=== PATIENT | male | born 1975 | race Two or more races ===

== ENCOUNTER 2024-04-08 13:26 | Emergency (ER) | payer OTHER, SELFPAY ==
--- NOTE | 2024-04-08 13:39 | XR_ITS ---
Examination: Ribs, right, with PA chest, 5 views Technique: Chest PA, RIBS AP, RPO, LPO, AP coned lower ribs 5 views Exam date and time: April 08, 2024 1344 hours INDICATIONS: Patient fell off a ladder 2 days ago with injury to the right chest, right chest pain Findings: Acute fractures right fifth, sixth, seventh ribs anteriorly without significant displacement No pneumothorax IMPRESSION: No pneumothorax pulmonary contusion or hemothorax Normal heart size Acute fractures right fifth, sixth, seventh ribs anteriorly
[2024-04-08 13:40] VITALS: BP 153/87; PULSE 70; RESP 18; TEMP 36.8; O2SAT 98; BMI 28.6
[2024-04-08] MEDS: IBUPROFEN TAB 400 MG TABLET 800 MG PO (13:50)
[2024-04-08] MEDS: HYDROcodone/APAP 5/325 TABLET 1 TAB PO (13:51)
--- NOTE | 2024-04-08 14:08 | EDNOTE_ITS ---
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) Time Seen by Provider: 04/08/24 13:33 Arrival date/time: 04/08/24 13:26 48-year-old male presents the emergency department complains of right-sided rib pain after falling off a ladder 3 days ago while at work patient reports no head or neck pain no abdominal pain Limitations: no limitations Related Data Previous Rx's ?Medication ?Instructions ?Recorded albuterol sulfate 90 mcg/actuation 1 inh inhalation QID PRN shortness 01/13/23 aerosol inhaler of breath or wheezing #8.5 grams acetaminophen 325 mg-DM 10 mg/10 20 ml PO BID #118 mL 08/01/23 mL oral liquid (Robitussin Cough-Sore Throat) budesonide-formoterol HFA 160 2 puff inhalation BID asthma #10.2 02/16/24 mcg-4.5 mcg/actuation aerosol grams inhaler (Symbicort) cyclobenzaprine 10 mg tablet 10 mg PO TID PRN muscle spasm 10 04/08/24 days #30 tab-caps hydrocodone 5 mg-acetaminophen 325 1 tab PO BID PRN pain #10 tabs 04/08/24 mg tablet ibuprofen 800 mg tablet 800 mg PO TID PRN pain #30 tabs 04/08/24 Allergies Allergy/AdvReac Type Severity Reaction Status Date / Time No Known Allergies Allergy Verified 04/08/24 13:30 Review of Systems Review of Systems Systems Reviewed: All systems reviewed, normal except as documented Constitutional Constitutional: Reports system reviewed and no additional complaints, except as documented, Denies fever(s) and Denies headache(s) Eyes Eyes: Reports system reviewed and no additional complaints, except as documented and Denies blurry vision ENT Ears, Nose, Mouth, and Throat: Reports system reviewed and no additional complaints, except as documented, Denies headache(s), Denies nasal congestion and Denies nasal discharge Cardiovascular Cardiovascular: Reports system reviewed and no additional complaints, except as documented, Denies chest pain and Denies dyspnea Respiratory Respiratory: Reports system reviewed and no additional complaints, except as documented, Denies chest congestion, Denies cough and Denies dyspnea Gastrointestinal Gastrointestinal: Reports system reviewed and no additional complaints, except as documented and Denies abdominal pain Musculoskeletal Musculoskeletal: Reports system reviewed and no additional complaints, except as documented and Reports other (Rib pain) Integumentary/Breasts Skin/Breast: Reports system reviewed and no additional complaints, except as documented and Denies rash Neurologic Neurologic: Reports system reviewed and no additional complaints, except as documented, Reports as per HPI and Denies headache(s) Past Medical History Past Medical History NEUROLOGIC: Negative Neurological Disorders, Cerebrovascular Accident, Transient Ischemic Attacks (TIA), Dementia, Alzheimer's Disease, Parkinson's Disease, Brain Tumor, Meningitis, Seizures, Epilepsy, Multiple Sclerosis, Cerebral Palsy, Amyotrophic Lateral Sclerosis (ALS/Jossie Gehrig's), Guillain-[place] Syndrome, Spina Bifida, Paralysis, Peripheral Neuropathy, Thao's Palsy, Subdural Hematoma, Migraine, Head Trauma, Spinal Cord Injury or Traumatic Brain Injury CARDIAC: Negative Cardiac Disorders, Myocardial Infarction, Cardiac Arrhythmia, Atrial Fibrillation, Angina, Heart Murmur, Coronary Artery Disease, Atherosclerotic Heart Disease, Peripheral Vascular Disease, Hypercholesterolemia, Aneurysm, Congestive Heart Failure, Congenital Heart Disease, Valvular Heart Disease, Rheumatic Fever, Cardiomyopathy, Edema, Pericarditis, Cellulitis, Deep Vein Thrombosis, Hypertension, Hypotension or Varicose Veins RESPIRATORY: Negative Chronic Obstructive Pulmonary Disease (COPD) or Bronchitis GASTROINTESTINAL: Negative Gastrointestinal Disorders, Hepatitis, Cirrhosis, Pancreatitis, Celiac Disease, Gall Bladder Disease, Gastrointestinal Bleed, Esophageal Varices, Ambriz's Esophagus, Colitis, Ulcerative Colitis, Diverticulitis, Diverticulosis, Ulcer, Irritable Bowel, Crohn's Disease, Obstructive Bowel, Hiatal Hernia, Hemorrhoids, Gastroesophageal Reflux Disease or Obesity GENITOURINARY: Negative Genitourinary Disorders, Renal Disease, Kidney Stones, Polycystic Kidney Disease, Neurogenic Bladder, Inguinal Hernia, Dialysis or Benign Prostatic Hyperplasia REPRODUCTIVE: Negative Genital Herpes, Gonorrhea, Syphilis or Testicular Cancer MUSCULOSKELETAL: Negative Musculoskeletal Disorders, Muscular Dystrophy, Myasthenia Gravis, Marfan's Syndrome, Arthritis, Rheumatoid Arthritis, Osteoporosis, Degenerative Disk Disease, Gout, Scoliosis, Fibromyalgia, Fractures, Degenerative Joint Disease, Osteomyelitis or Poliovirus ENT: Negative Cataracts, Glaucoma, Blind, Retinal Detachment, Macular Degeneration, Ear Infection, Deafness, Head Trauma or Eye Prosthesis ENDOCRINE: Negative Endocrine Disorders, Diabetes Mellitus Type 1, Diabetes Mellitus Type 2, Hypoglycemia, Pam's Syndrome, Morse's Disease, Hyperthyroidism, Hypothyroidism, Parathyroid Disease, Pituitary Disease, Systemic Lupus Erythematosus, Syndrome of Inappropriate Antidiuretic Hormone (SIADH), Adrenal Disease or Graves' Disease HEMATOLOGIC: Negative Blood Disorders, Anemia, Leukemia, Hemophilia, Thalassemia, Sickle Cell Disease or Clotting Problems PSYCHO/SOCIAL: Negative Psychiatric Problems, Schizophrenia, Recreational Drug Use, Bipolar Disorder, Depression, Anxiety, Behavior Problems, Self-Mutilation, Attention Deficit Disorder, Attention Deficit Hyperactivity Disorder, Depression, Post Traumatic Stress Disorder or Eating Disorder OTHER HISTORY: Positive Chicken Pox; Negative Hospitalization, Autoimmune Disease, Down Syndrome, Autism, Developmental Delay, Shingles, Falls, Blood Transfusions, Blood Transfusion Reaction, Anesthesia Reactions, Organ Transplant, Chemotherapy, Radiation Therapy, Hyperbaric Therapy, MRSA, VRSA, Vancomycin-Resistant Enterococci, Human Immunodeficiency Virus (HIV), Measles, Mumps, Rubella ([place] Measles), Pertussis, Clostridium Difficile, Cancer or Testicular Cancer Family History FAMILY HISTORY: Negative Family Psychiatric Problems, Family Respiratory Disorders, Family Cardiac Disorders, Family Gastrointestinal Problems, Family Cancer, Family Surgery or Family Anesthesia Reaction Surgical History SURGICAL: Negative Pacemaker, Neurologic Surgery, Vasectomy or Organ Transplant Social History SMOKING STATUS: Never smoker SUBSTANCE USE: does not use ED Exam General Limitations: Present no limitations General appearance: Present alert and in no apparent distress Head Head exam: Present atraumatic, normocephalic and normal inspection Eye Eye exam: Present normal appearance, PERRL and EOMI ENT ENT exam: Present normal exam, normal oropharynx and mucous membranes moist Neck Neck exam: Present normal inspection, full ROM and trachea midline Chest Chest inspection: Present normal inspection and symmetric chest wall rise Respiratory Respiratory exam: Present normal lung sounds bilaterally Cardiovascular Cardiovascular exam: Present regular rate, normal rhythm and normal heart sounds Abdominal Exam Abdominal exam: Present soft and normal bowel sounds Extremities Exam Extremities exam: Present normal inspection and full ROM Back Exam Back exam: Present normal inspection, full ROM, tenderness, muscle spasm and paraspinal tenderness; Absent CVA tenderness (R) or CVA tenderness (L) Back 1 view image: 2 1. Right-sided rib pain Neurological Exam Neurological exam: Present alert, oriented X3 and CN II-XII intact Psychiatric Psychiatric exam: Present normal affect and normal mood Skin Skin exam: Present warm, dry, intact and normal color Course Quality Measures none Orders Category Date Time Status XR ribs RT min 3V w CXR1V Stat Exams 04/08/24 13:39 Completed HYDROcodone*/APAP 5/325 [Erving 5/325] Med 04/08/24 13:39 Discontinued 1 tab PO X1 ONE Ibuprofen Tab [Motrin Tab] Med 04/08/24 13:39 Discontinued 800 mg PO X1 ONE Vital Signs Vital signs: Vital Signs Temperature 98.2 F 04/08/24 13:40 Pulse Rate 70 04/08/24 13:40 Respiratory Rate 18 04/08/24 13:40 Blood Pressure 153/87 H 04/08/24 13:40 Pulse Oximetry (%) 98 04/08/24 13:40 Oxygen Delivery Method Room Air 04/08/24 13:40 O2 saturation 98% room air within normal limits Fall MDM Narrative MDM Narrative:: 48-year-old male presents the emergency department complains of right-sided rib pain after falling off a ladder 3 days ago while at work patient reports no head or neck pain no abdominal pain Right rib series ordered x-ray consistent with fracture patient has no pneumothorax or hemothorax Patient given pain medication here Patient discharged home in no distress to follow-up with Workmen's Compensation care doctor in the next 24 to 48 hours and for any worsening symptoms to return to the ER immediately Patient data External records reviewed:: [facility] previous records Clinical information provided by:: patient Social determinants that could affect healthcare access:: none Patient has the following chronic illnesses:: None How is presenting disease/condition affected by chronic disease/condition?: no chronic disease Evaluation data The following diagnostics were reviewed and interpreted by me:: radiology exam(s) Lab and/or radiology exams considered but not ordered:: Radiology obtain Interpretation Summary: Reviewed by me Medications / Prescriptions Medications or Prescriptions considered but not ordered:: Given Medication administrations:: Medication Administration History Discontinued Medications Hydrocodone Bitart/Acetaminophen (Hydrocodone/Apap 5/325 Tablet) 1 tab PO X1 ONE Stop: 04/08/24 13:40 Last Admin: 04/08/24 13:51 Dose: 1 tab Documented By: JAS Ibuprofen (Ibuprofen Tab 400 Mg Tablet) 800 mg PO X1 ONE Stop: 04/08/24 13:40 Last Admin: 04/08/24 13:50 Dose: 800 mg Documented By: JAS None Consultations Consultation(s) initiated? (list below): No Diagnosis Fall Differential Diagnosis: other (Rib fracture, rib contusion) Most likely diagnosis given after review of the tests above:: Rib fracture Admission Indicated Admission indicated?: not indicated Admission Request Was there a request for admission?: No Disposition Plan Disposition Plan: Discharge Discharge Attestation Discharge Attestation: The patient and all family members were given an opportunity to ask questions and understood the discharge instructions. Discharge instructions specifically effects, indications for sooner follow up or return to the emergency department, and the expected course of current diagnosis. Patient condition: Stable Discharge Plan Plan Patient Disposition: HOME (Self Care) Disposition Comment: Stable Prescriptions/Referrals Prescriptions/Med Rec: New cyclobenzaprine 10 mg tablet 10 mg PO TID PRN (Reason: muscle spasm) 10 Days Qty: 30 0RF ibuprofen 800 mg tablet 800 mg PO TID PRN (Reason: pain) Qty: 30 0RF hydrocodone-acetaminophen 5-325 mg tablet 1 tab PO BID MDD 10 PRN (Reason: pain) Qty: 10 0RF No Action Robitussin Cough-Sore Throat 325-10 mg/10 mL liquid 20 ml PO BID Qty: 118 0RF budesonide-formoterol [Symbicort] 160-4.5 mcg/actuation HFA aerosol inhaler 2 puff inhalation BID MDD 4 Qty: 10.2 5RF albuterol sulfate 90 mcg/actuation HFA aerosol inhaler 1 inh inhalation QID PRN (Reason: shortness of breath or wheezing) Qty: 8.5 0RF Problem List Clinical Impression: Closed fracture of rib of right side Patient/Caregiver Discharge Instructions Education Materials: [facility] [employer] [facility] Additional Instructions: Please follow up with your primary care doctor in the next 24-48hrs for any worsening symptoms return here immediately Print Language: Guyanese Stand Alone Forms: Stella Award Info., Work/School Release, Patient Portal Info Letter PA/BABATUNDE Supervising Physician PA/BABATUNDE Supervising Physician: Dr. Baker
== END 2024-04-08 15:03 | disposition home or self-care (01) ==
LOC: SERX 14:28
PROVIDERS: Emergency Provider Emergency Medicine
DX: S22.31XA Fracture of one rib, right side, initial encounter for closed fracture (principal); W11.XXXA Fall on and from ladder, initial encounter; Y99.0 Civilian activity done for income or pay
CPT/HCPCS: 71101; 99283; A9270

== ENCOUNTER → 2024-04-26 | Outpatient (CLI) | payer OTHER, SELFPAY ==
--- NOTE | 2024-04-26 09:42 | XR_ITS ---
Examination: Ribs, right, with PA chest, 5 views Technique: Chest PA, RIBS AP, RPO, LPO, AP coned lower ribs 5 views Exam date and time: April 26, 2024 1021 hours INDICATIONS: Injury to the right chest 2 weeks ago, right rib pain Findings: Minimal rounding left ventricle No pneumothorax Acute fractures right sixth, seventh, eighth, ninth ribs anteriorly with mild offset IMPRESSION: No pneumothorax Multiple right rib fractures
== END | disposition home or self-care (01) ==
LOC: CDIM 09:25
PROVIDERS: Referring Provider Physician Assistant; Visit Provider Physician Assistant
DX: S22.41XA Multiple fractures of ribs, right side, initial encounter for closed fracture (principal); X58.XXXA Exposure to other specified factors, initial encounter
CPT/HCPCS: 71101

== ENCOUNTER → 2024-07-05 | Outpatient (CLI) | payer OTHER, SELFPAY ==
--- NOTE | 2024-07-05 | XR_ITS ---
Examination: Ribs, right, with PA chest, 4 views Technique: Chest PA, RIBS AP, RPO, LPO, 4 views Exam date and time: July 05, 2024 1119 hours INDICATIONS: History injury to the right chest this week Findings: Mild prominence of ventricle No pneumothorax Subacute versus old fractures right eighth and ninth ribs in the midaxillary line IMPRESSION: No pneumothorax Subacute versus old fractures right eighth and ninth ribs
--- NOTE | 2024-07-05 | XR_ITS ---
Examination: PA lateral chest 2 views TECHNIQUE: Upright PA and lateral chest 2 views Examination time: July 05, 2024 1123 hours INDICATIONS: Patient fell off a ladder March 2024 with injury to the chest, chest pain FINDINGS: Please see the rib series report indicating healing fractures right seventh and eighth ribs No pneumothorax Normal heart size IMPRESSION: No pneumothorax pulmonary contusion or hemothorax
== END | disposition home or self-care (01) ==
PROVIDERS: Referring Provider Physician Assistant; Visit Provider Physician Assistant
DX: S22.41XD Multiple fractures of ribs, right side, subsequent encounter for fracture with routine healing (principal); W11.XXXD Fall on and from ladder, subsequent encounter
CPT/HCPCS: 71046; 71101

== ENCOUNTER → 2024-09-27 | Outpatient (CLI) | payer OTHER, SELFPAY ==
--- NOTE | 2024-09-27 | XR_ITS ---
Examination: Ribs, right, with PA chest, 5 views Technique: Chest PA, RIBS AP, RPO, LPO, AP coned lower ribs 5 views INDICATIONS: Patient fell from a ladder March 2024 with into the right chest Date and time: September 27, 2024 1201 hours FINDINGS: Normal heart size No pneumothorax Healing fractures right seventh and eighth ribs without significant offset IMPRESSION: Healing fractures right seventh and eighth ribs No pneumothorax
== END | disposition home or self-care (01) ==
LOC: CDIM 11:52
PROVIDERS: Referring Provider Physician Assistant; Visit Provider Physician Assistant
DX: S22.41XD Multiple fractures of ribs, right side, subsequent encounter for fracture with routine healing (principal); X58.XXXD Exposure to other specified factors, subsequent encounter
CPT/HCPCS: 71101

== ENCOUNTER 2024-11-05 12:39 | Emergency (ER) | payer MEDICAID, SELFPAY ==
[2024-11-05 12:48] VITALS: BP 120/73; PULSE 76; RESP 22; TEMP 36.8; O2SAT 98; BMI 29.7
--- NOTE | 2024-11-05 12:50 | XR_ITS ---
Examination: PA chest single view TECHNIQUE: Upright PA chest single view Date and time: November 15, 2024 1256 hours INDICATIONS: Coughing shortness of breath beginning yesterday. FINDINGS: Normal heart size Lungs are clear. The osseous structures are intact IMPRESSION: No active disease
--- NOTE | 2024-11-05 12:53 | EDNOTE_ITS ---
<Statement entered by Bibiana Green MD - 11/05/24 15:15> As co-signing physician, I was present and available for consult prn. I concur with the plan and care as documented by the midlevel provider. ED SOB =RME/HPI General Chief Complaint: Shortness of Breath/Dyspnea Stated Complaint: SOB x2 days, asthma Time Seen by Provider: 11/05/24 12:44 Arrival date/time: 11/05/24 12:39 RME / HPI RME / HPI Narrative: 49-year-old male patient with significant history of asthma, came in for evaluation regarding shortness of breath. Onset of symptoms since yesterday is worsening shortness of breath, despite using albuterol inhaler. Patient also complained of cough. Denies any fever denies any sore throat denies any other complaints no medication was taken prior to arrival. Related Data Previous Rx's ?Medication ?Instructions ?Recorded albuterol sulfate 90 mcg/actuation 1 inh inhalation QI D PRN shortness 01/13/23 aerosol inhaler of breath or wheezing #8.5 g shelly acetaminophen 325 mg-DM 10 mg/10 20 ml PO BID #118 mL 07/31/ mL oral liquid (Robitussin Cough-Sore Throat) hydrocodone 5 mg-acetaminophen 325 1 tab PO BID PRN pa in #10 tabs 04/08/24 mg tablet ibuprofen 800 mg tablet 800 mg PO TID PRN pain #30 t abs 04/08/24 budesonide-formoterol HFA 160 2 puff inhalation BID as thma #10.2 04/29/24 mcg-4.5 mcg/actuation aerosol grams inhaler (Symbicort) albuterol sulfate 2.5 mg/3 mL 2.5 mg (3 mL) inhalation QID PRN 11/05/24 (0.083 %) solution for nebulization bronchospasm #90 m L albuterol sulfate 90 mcg/actuation 2 inh inhalation Q6 H PRN shortness 11/05/24 aerosol inhaler of breath or wheezing #8.5 g shelly ipratropium 0.5 mg-albuterol 3 mg 3 ml inhalation Q8H PRN shortness 11/05/24 (2.5 mg base)/3 mL nebulization of breath #90 mL soln prednisone 50 mg tablet 50 mg PO QDAY #7 tabs Allergies Allergy/AdvReac Type Severity Reaction Status Date / Time No Known Allergies Allergy Verified 11/05/24 12:45 Review of Systems Review of Systems Narrative Review of Systems: Review of system reviewed and within normal limits except mentioned in HPI ED Exam Narrative Physical exam: VITAL SIGNS: Reviewed. GENERAL APPEARANCE: Alert and interactive, follows commands, no acute distress, HEAD AND FACE: Non-traumatic. ENT: PERRL, pink conjunctivitis, eyelid no trauma, Mucous membrane moist. NECK: Supple, nontender, no nuchal rigidity. CHEST: No tenderness, no crepitus, no paradoxical movement, no retractions. LUNGS: Harsh, well ventilated, symmetric, no rales,+ occasional wheezing, no ronchi, no stridor, decreased breath sounds bilaterally. HEART: Regular rate, regular rhythm, no murmur, no gallops. ABDOMEN: Soft, positive bowel sounds, nondistended, no guarding, nontender, no rebound, no masses, RECTAL: Deferred. GENITAL: Deferred. NEUROLOGICAL: Gross motor function intact sensory function intact, Appropriate for age. MUSCULOSKELETAL: low back nontender, full range of motion. EXTREMITIES: Nontender, full range of motion. SKIN: Color pink, dry, no rash, no lacerations, no abrasions, no contusions. LYMPHATICS: Deferred. Course Quality Measures none Orders Category Date Time Status Bedside COVID-19 Antigen Test NOW Care 11/05/24 12:52 Active XR chest 1V Stat Exams 11/05/24 12:50 Completed B-Type Natriuretic Peptide Stat Lab 11/05/24 13:25 Completed CBC Stat Lab 11/05/24 13:25 Completed Comprehensive Metabolic Panel Stat Lab 11/05/24 13:25 Completed Partial Thromboplastin Time Stat Lab 11/05/24 13:25 Completed Troponin I Stat Lab 11/05/24 13:25 Completed ALBUTEROL RT 0.5ml [Proventil Rt 0.5ml] Med 11/05/24 12:50 Discontinued 2.5 mg INH X1 ONE Albuterol/Ipratr Rt Fide [Duoneb Rt Fide] Med 11/05/24 12:50 Discontinued 3 ml INH X1 ONE Dexamethasone Inj [Decadron Inj] Med 11/05/24 12:50 Discontinued 10 mg IM X1 ONE Sodium Chloride Rt Fide 0.9% [NS Rt Fide 0.9%] Med 11/05/24 12:50 Active 3 ml INH PRN PRN Vital Signs Vital signs: Vital Signs Temperature 98.2 F 11/05/24 12:48 Pulse Rate 76 11/05/24 12:48 Respiratory Rate 22 H 11/05/24 12:48 Blood Pressure 120/73 11/05/24 12:48 Pulse Oximetry (%) 98 11/05/24 12:48 Oxygen Delivery Method Room Air 11/05/24 12:48 Shortness of Breath / Dyspnea MDM Narrative MDM Narrative:: 49-year-old male patient with significant history of asthma, came in for evaluation regarding shortness of breath. Onset of symptoms since yesterday is worsening shortness of breath, despite using albuterol inhaler. Patient also complained of cough. Denies any fever denies any sore throat denies any other complaints no medication was taken prior to arrival. Patient's workup all came back unremarkable including chest x-ray. Patient was given Decadron, DuoNeb and albuterol breathing treatment with complete resolution of symptoms. Patient is not wheezing anymore. Patient oxygen sat was noted to be 99% on room air. Patient appears nontoxic and hemodynamically stable .Decision to discharge the patient. The patient/family was given an opportunity to ask questions and understood their discharge instructions. Discharge instructions specifically included follow up provider and time frame, current and/or new medications and possible side effects, indications for sooner follow up or return to the emergency department, and the expected course of current diagnosis. Patient reports feeling better as well and giving evidence of significant clinical improvement, I believe patient is now a candidate for discharge. Patient data External records reviewed:: None Clinical information provided by:: patient Social determinants that could affect healthcare access:: none Patient has the following chronic illnesses:: Asthma How is presenting disease/condition affected by chronic disease/condition?: exacerbated by Evaluation data The following diagnostics were reviewed and interpreted by me:: lab results and radiology exam(s) Lab and/or radiology exams considered but not ordered:: None Interpretation Summary: See results MDM Medications / Prescriptions Medications or Prescriptions considered but not ordered:: None Medication administrations:: Medication Administration History Sodium Chloride (Sodium Chloride Rt Fide 0.9% 3 Ml Nebu) 3 ml INH PRN PRN PRN Reason: SOLN Stop: 12/05/24 12:49 Discontinued Medications Albuterol (Albuterol Rt 2.5 Mg/0.5 Ml Nebu) 2.5 mg INH X1 ONE Stop: 11/05/24 12:51 Last Admin: 11/05/24 13:26 Dose: 2.5 mg Documented By: VINCE Albuterol/Ipratropium (Albuterol/Ipratropium (Duoneb) Rt Fide 3 Ml Nebu) 3 ml INH X1 ONE Stop: 11/05/24 12:51 Last Admin: 11/05/24 13:25 Dose: 3 ml Documented By: VINCE Dexamethasone Sodium Phosphate (Dexamethasone Sod Phos Inj 10 Mg/Ml Vial) 10 mg IM X1 ONE Stop: 11/05/24 12:51 Last Admin: 11/05/24 13:07 Dose: 10 mg Documented By: JAS Chandler and DuoNeb Consultations Consultation(s) initiated? (list below): No Diagnosis Shortness of Breath Differential Diagnosis: acute exacerbation of chronic obstructive airways disease, community acquired pneumonia and asthma with exacerbation Most likely diagnosis given after review of the tests above:: Asthma exacerbation Admission Indicated Admission indicated?: not indicated Admission Request Was there a request for admission?: No Disposition Plan Disposition Plan: Discharge Discharge Attestation Discharge Attestation: The patient was given an opportunity to ask questions and understood the discharge instructions. Discharge instructions specifically effects, indications for sooner follow up or return to the emergency department, and the expected course of current diagnosis. Patient condition: Stable Discharge Plan Plan Patient Disposition: HOME (Self Care) Discharge Disposition comment: stable Prescriptions/Referrals Prescriptions/Med Rec: New prednisone 50 mg tablet 50 mg PO QDAY Qty: 7 0RF ipratropium-albuterol 0.5 mg-3 mg(2.5 mg base)/3 mL solution for nebulization 3 ml inhalation Q8H PRN (Reason: shortness of breath) Qty: 90 0RF albuterol sulfate 2.5 mg /3 mL (0.083 %) solution for nebulization 2.5 mg inhalation QID PRN (Reason: bronchospasm) Qty: 90 0RF albuterol sulfate 90 mcg/actuation HFA aerosol inhaler 2 inh inhalation Q6H PRN (Reason: shortness of breath or wheezing) Qty: 8.5 0RF No Action Robitussin Cough-Sore Throat 325-10 mg/10 mL liquid 20 ml PO BID Qty: 118 0RF budesonide-formoterol [Symbicort] 160-4.5 mcg/actuation HFA aerosol inhaler 2 puff inhalation BID MDD 4 puffs Qty: 10.2 5RF albuterol sulfate 90 mcg/actuation HFA aerosol inhaler 1 inh inhalation QID PRN (Reason: shortness of breath or wheezing) Qty: 8.5 0RF ibuprofen 800 mg tablet 800 mg PO TID PRN (Reason: pain) Qty: 30 0RF hydrocodone-acetaminophen 5-325 mg tablet 1 tab PO BID MDD 10 PRN (Reason: pain) Qty: 10 0RF Problem List Clinical Impression: Asthma exacerbation Patient/Caregiver Discharge Instructions Discharge Activity: activity as tolerated Education Materials: Asthma Additional Instructions: Thank you for the opportunity for serving you today. You are stable for discharged . You are advised to: Follow-up with your PCP in 1 to 2 days Return to ED for worsening of symptoms Increase oral fluids Take medication as prescribed Print Language: Uzbek Stand Alone Forms: Stella Award Info., Patient Portal Info Letter PA/INDUSTRIAL ORDER CLERK Supervising Physician BRIE/BABATUNDE Supervising Physician: MD Peter
[2024-11-05] MEDS: DEXAMETHASONE SOD PHOS INJ 10 MG/ML VIAL IM (13:07)
[2024-11-05] MEDS: ALBUTEROL/IPRATROPIUM (Duoneb) RT SOL 3 ML NEBU INH (13:25)
[2024-11-05 13:26] VITALS: PULSE 75; PULSE 76; RESP 20; O2SAT 99
[2024-11-05] MEDS: ALBUTEROL RT 2.5 MG/0.5 ML NEBU INH (13:26)
[2024-11-05 13:40] LABS: Basophils # (Auto) 0.0 Thou/mm3 (0.0-0.2); Basophils % (Auto) 1 % (0-2.5); Eosinophils # (Auto) 0.3 Thou/mm3 (0.0-0.5); Eosinophils % (Auto) 4 % (0-10); Hematocrit 44.0 % (41.0-53.0); Hemoglobin 15.6 g/dL (13.5-16.0); Immature Granulocytes Auto 0.01 Thou/mm3 (0.00-0.00); Lymphocytes # (Auto) 1.4 Thou/mm3 (1.0-4.8); Lymphocytes % (Auto) 23 % (10-50); Mean Corpuscular HGB Conc 35.5 g/dl (31.0-37.0); Mean Corpuscular Hemoglobin 30.8 pg (25.0-35.0); Mean Corpuscular Volume 87 fL (80-100); Monocytes # (Auto) 0.8 Thou/mm3 (0.0-0.8); Monocytes % (Auto) 13 % (0-12); Neutrophils # (Auto) 3.8 Thou/mm3 (1.8-7.7); Neutrophils % (Auto) 59 % (37-80); Nucleated Red Blood Cell # 0.00 Thou/mm3 (0.00-0.00); Nucleated Red Blood Cell % 0 /100 WBC (0); Platelet Count 245 Thou/mm3 (140-440); RDW Standard Deviation 40.3 fL (35.1-43.9); Red Blood Count 5.07 Miln/mm3 (4.50-5.90); White Blood Count 6.4 Thou/mm3 (3.8-10.6)
[2024-11-05 13:55] LABS: Partial Thromboplastin Time 28.5 Seconds (22.0-36.0)
[2024-11-05 13:59] LABS: Alanine Aminotransferase 48 U/L (10-49); Albumin, Serum 4.8 gm/dL (3.5-5.0); Albumin/Globulin Ratio 1.6 (1.2-2.2); Alkaline Phosphatase 85 U/L (46-116); Anion Gap 13 (7-16); Aspartate Amino Transferase 28 U/L (0-34); BUN/Creatinine Ratio 10 Ratio (12-20); Bilirubin,Total 0.4 mg/dL (0.3-1.2); Blood Urea Nitrogen 11 mg/dL (9-23); Calcium 9.8 mg/dL (8.3-10.6); Calcium (Corrected) 9.8 mg/dL (8.5-10.1); Carbon Dioxide 21.5 mMol/L (20.0-31.0); Chloride 106 mMol/L (98-107); Creatinine (Component) 1.1 mg/dL (0.6-1.3); Estimated Creatinine Clearance 86.1 mL/min (>60); Globulin 3.0 gm/dL (2.3-3.5); Glucose 97 mg/dL (74-106); Osmolality,Calculated 278 (275-295); Potassium 3.8 mMol/L (3.4-5.1); Sodium 140 mMol/L (136-145); Total Protein 7.8 gm/dL (5.7-8.2); Troponin I < 0.020 ng/mL (0.0-0.045); eGFR > 60 See Note
[2024-11-05 14:04] LABS: B-Type Natriuretic Peptide 23 pg/mL (0-100)
== END 2024-11-05 14:59 | disposition home or self-care (01) ==
LOC: SERX 14:34
PROVIDERS: Nurse Practitioner Family; Emergency Provider Emergency Medicine
DX: J45.901 Unspecified asthma with (acute) exacerbation (principal)
CPT/HCPCS: 36415; 71045; 80053; 83880; 84484; 85025; 85730; 87811; 94640; 96372; 99284; A9270; J1100